=== PATIENT | female | born 2000 | race Hispanic/Latino ===

== ENCOUNTER 2021-12-01 02:18 | Emergency (ER) | payer MEDICAID ==
[2021-12-01 04:08] LABS: Hematocrit 39.9 % (30.3-42.9); Hemoglobin 13.2 gm/dl (10.1-14.3); Mean Corpuscular HGB Conc 33 % (30-34); Mean Corpuscular Volume 84 fl (79-97); Platelet Count 318 K/mm3 (140-440); Red Blood Count 4.75 M/mm3 (3.65-5.03); Red Cell Distribution Width 14.7 % (13.2-15.2)
[2021-12-01] MEDS ORDERED: MORPHINE 4 MG/1 ML INJ IV ONE (04:13)
[2021-12-01] MEDS ORDERED: ONDANSETRON 4 MG/2 ML INJ IV ONE (04:13)
[2021-12-01] MEDS ORDERED: SODIUM CHLORIDE 0.9% 1000 ML 1,000 ML IV ONE (04:13)
[2021-12-01 04:27] LABS: Alanine Aminotransferase 10 units/L (7-56); Blood Urea Nitrogen 8 mg/dL (7-17); Calcium 8.9 mg/dL (8.4-10.2); Hemolysis Index 38
--- NOTE | 2021-12-01 04:34 | Ultrasound Report ---
ULTRASOUND OBSTETRIC INDICATION / CLINICAL INFORMATION: Pelvic pain, vaginal bleeding, 19 weeks gestation. TECHNIQUE: Transabdominal. COMPARISON: None available. FINDINGS: There is a single intrauterine . Biparietal Diameter = 3.54 cm = 16.6 weeks.days Head Circumference = 14.82 cm = 18.0 weeks.days Abdominal Circumference = 12.43 cm = 18.0 weeks.days Femur Length = 2.80 cm = 18.4 weeks.days Average Ultrasound Age (AUA) = 17.6 weeks.days Heart Rate: 155 beats per minute. Estimated Weight in grams (if calculated): 230 Position: cephalic. Cervix: closed. Length in cm (if measured): 4.0 Placenta: posterofundal and low lying but free of os Amniotic Fluid Volume: Qualitatively normal Maternal Adnexa: No significant abnormality. IMPRESSION: 1. Single, living intrauterine with estimated sonographic age of 17.6 weeks.days 2. No significant sonographic abnormality. Signer Name: Paulo Chavez MD Signed: 12/01/2021 4:30 AM Workstation Name: [id number]
[2021-12-01 04:40] LABS: Bilirubin,Urine NEG (Negative); Blood,Urine NEG (Negative); Color,Urine Amber (Yellow); Mucus,Urine 3+ /HPF; Urobilinogen,Urine < 2.0 mg/dL (<2.0)
[2021-12-01 04:46] LABS: BUN/Creatinine Ratio 20
[2021-12-01 04:47] LABS: Basophils % (Manual) 0 % (0.0-1.8); Eosinophils % (Manual) 0 % (0.0-4.3); Total Cells Counted 100
[2021-12-01 04:49] LABS: Platelet Estimate Consistent w Auto; RBC Morphology Normal
--- NOTE | 2021-12-01 05:31 | Emergency Department Report ---
ED Female HPI - General Chief complaint: Vaginal Bleeding Stated complaint: 19 WKS ,CRAMPING,SEVERE DIARRHEA,VOMITING Source: patient Mode of arrival: Ambulatory Limitations: No Limitations - History of Present Illness Initial comments: Patient is a A3 21-year-old female who is approximately 17 weeks gestation presents to the ED with complaint of acute onset persistent diffuse low abdominal pain with vaginal bleeding for the last 3 days. Patient states that in the last 8 hours, the pelvic pain and vaginal bleeding have worsened such that she is unable to sleep as the pain radiates from the low abdomen to the low back. Patient denies nausea and vomiting, fever, chills, dysuria, urinary frequency and urgency, diarrhea, chest pain or shortness of breath, headache, dizziness, lightheadedness or syncope. MD Complaint: vaginal bleeding, pelvic pain, other (Low back pain) -: Sudden, days(s) (3) Location: suprapubic, other (Vaginal) Radiation: suprapubic, other (Low back) Severity: severe Severity scale (0 -10): 8 Quality: cramping, sharp Consistency: constant Improves with: none Worsens with: none Are you Now?: Yes (17 weeks gestation) Associated Symptoms: denies other symptoms, vaginal bleeding, abdominal pain (Suprapubic pain), hematuria. denies: vaginal discharge, nausea/vomiting, fever/chills, headaches, loss of appetite, dysuria, rash, seizure, shortness of breath, syncope, weakness - Related Data Sexually active: Yes : 5 Para: 1 A: 3 Previous Rx's Medication Instructions Recorded Last Taken Type Acetaminophen [Tylenol] 1,000 mg PO Q6HR #30 tablet 12/01/21 Unknown Rx Allergies Allergy/AdvReac Type Severity Reaction Status Date / Time No Known Allergies Allergy Unverified 12/01/21 03:31 ED Review of Systems ROS: Stated complaint: 19 WKS ,CRAMPING,SEVERE DIARRHEA,VOMITING Other details as noted in HPI Constitutional: denies: chills, fever Eyes: denies: eye pain, eye discharge, vision change ENT: denies: ear pain, throat pain Respiratory: denies: cough, shortness of breath, wheezing Cardiovascular: denies: chest pain, palpitations Endocrine: no symptoms reported Gastrointestinal: abdominal pain (Suprapubic pain). denies: nausea, diarrhea Genitourinary: abnormal menses (Heavy vaginal bleeding). denies: urgency, dysuria, frequency, hematuria, discharge Musculoskeletal: denies: back pain, joint swelling, arthralgia Skin: denies: rash, lesions Neurological: denies: headache, weakness, paresthesias Psychiatric: denies: anxiety, depression Hematological/Lymphatic: denies: easy bleeding, easy bruising ED Past Medical Hx - Medications Home Medications: Home Medications Medication Instructions Recorded Confirmed Last Taken Type Acetaminophen [Tylenol] 1,000 mg PO Q6HR #30 tablet 12/01/21 Unknown Rx ED Physical Exam - General Limitations: No Limitations General appearance: alert, in no apparent distress - Head Head exam: Present: atraumatic, normocephalic, normal inspection - Eye Eye exam: Present: normal appearance, PERRL, EOMI Pupils: Present: normal accommodation - ENT ENT exam: Present: normal exam, normal orophraynx, mucous membranes moist, TM's normal bilaterally, normal external ear exam - Neck Neck exam: Present: normal inspection, full ROM. Absent: tenderness - Respiratory Respiratory exam: Present: normal lung sounds bilaterally. Absent: respiratory distress, wheezes, rales, rhonchi, chest wall tenderness, accessory muscle use, prolonged expiratory - Cardiovascular Cardiovascular Exam: Present: normal rhythm, tachycardia, normal heart sounds. Absent: systolic murmur, diastolic murmur, rubs, gallop - GI/Abdominal GI/Abdominal exam: Present: soft, tenderness (Palpable suprapubic tenderness), normal bowel sounds. Absent: guarding, rebound, hyperactive bowel sounds, hypoactive bowel sounds, organomegaly, mass, bruit - Bi-manual exam: Present: other (Pelvic exam deferred at this time) - Extremities Exam Extremities exam: Present: normal inspection, full ROM, normal capillary refill - Back Exam Back exam: Present: normal inspection, full ROM. Absent: tenderness, CVA tenderness (R), CVA tenderness (L), muscle spasm, paraspinal tenderness, vertebral tenderness - Neurological Exam Neurological exam: Present: alert, oriented X3, CN II-XII intact, normal gait, reflexes normal - Psychiatric Psychiatric exam: Present: normal affect, normal mood - Skin Skin exam: Present: warm, dry, intact, normal color. Absent: rash ED Course Vital Signs 12/01/21 02:34 Temperature 98.3 F Pulse Rate 111 H Respiratory 16 Rate Blood Pressure 112/73 O2 Sat by Pulse 95 Oximetry ED Medical Decision Making - Lab Data Result diagrams: 12/01/21 03:53 12/01/21 03:53 - Radiology Data Radiology results: report reviewed, image reviewed [facility] [address] [place] [address] Ultrasound Report Signed Patient: LEONARD REES MR#: [id number] 9 : 2000 Acct:[id number] Age/Sex: 21 / F ADM Date: 12/01/21 Loc: ED Attending Dr: Ordering Physician: YESIAK MO Date of Service: 12/01/21 Procedure(s): US OB >= 14 weeks Fetus Accession Number(s): [id number] cc: YESIKA MO ULTRASOUND OBSTETRIC INDICATION / CLINICAL INFORMATION: Pelvic pain, vaginal bleeding, 19 weeks gestation. TECHNIQUE: Transabdominal. COMPARISON: None available. FINDINGS: There is a single intrauterine . Biparietal Diameter = 3.54 cm = 16.6 weeks.days Head Circumference = 14.82 cm = 18.0 weeks.days Abdominal Circumference = 12.43 cm = 18.0 weeks.days Femur Length = 2.80 cm = 18.4 weeks.days Average Ultrasound Age (AUA) = 17.6 weeks.days Heart Rate: 155 beats per minute. Estimated Weight in grams (if calculated): 230 Position: cephalic. Cervix: closed. Length in cm (if measured): 4.0 Placenta: posterofundal and low lying but free of os Amniotic Fluid Volume: Qualitatively normal Maternal Adnexa: No significant abnormality. IMPRESSION: 1. Single, living intrauterine with estimated sonographic age of 17.6 weeks.days 2. No significant sonographic abnormality. Signer Name: Paulo Chavez MD Signed: 12/01/2021 4:30 AM Workstation Name: [id number] Transcribed By: MILO Dictated By: Paulo Chavez MD Electronically Authenticated By: Paulo Chavez MD Signed Date/Time: 12/01/21429 DD/ 7 TD/TT: Print Cancel - Medical Decision Making This is a A3 21-year-old female who is approximately 17 weeks gestation presents to the ED with complaint of acute onset persistent diffuse low abdominal pain with vaginal bleeding for the last 3 days. Patient states that in the last 8 hours, the pelvic pain and vaginal bleeding have worsened such that she is unable to sleep as the pain radiates from the low abdomen to the low back. In the ED, patient is alert and oriented x3 and is not in any distress. Patient is however tachycardic but afebrile in triage. Patient crying during the physical exam. Patient was treated for pain in the ED. Lab test results were reviewed and are all nonactionable including urinalysis except acute leukocytosis of 15,700. Transvaginal ultrasound showed a single, living intrauterine with estimated sonographic age of 17.6 weeks.days with heart rate of 155 bpm. No other significant sonographic abnormality identified. On reevaluation, patient's pain is well controlled medication. Patient will discharge home on pain medications and advised to maintain a complete pelvic rest with no strenuous or physical activities and to follow-up with her [facility]ICAL [facility] physician in 3 to 5 days for reevaluation. Patient was advised to continue taking Tylenol as needed for pain with food. Patient was advised return to the ED immediately if symptoms get worse. - Differential Diagnosis Threatened miscarriage; subchorionic bleed; UTI; ovarian cyst; Critical care attestation.: If time is entered above; I have spent that time in minutes in the direct care of this critically ill patient, excluding procedure time. ED Disposition Clinical Impression: Abdominal pain during in second trimester, Threatened miscarriage, Vaginal bleeding in patient at less than 20 weeks gestation Disposition: 01 HOME / SELF CARE / HOMELESS Is pt being admited?: No Does the pt Need Aspirin: No Condition: Stable Instructions: Threatened Miscarriage, [id number], Vaginal Bleeding During , Second Trimester, [id number], Abdominal Pain During , [id number] Additional Instructions: All lab test results were reviewed and are all nonactionable. Transvaginal ultrasound showed a single, living intrauterine with estimated sonographic age of 17.6 weeks.days with heart rate of 155 bpm. No other significant sonographic abnormality identified. Therefore maintain a complete pelvic rest, take pain medication as needed with food, drink plenty of fluids and follow-up with your [facility] physician in 3 to 5 days for reevaluation. Return to the ED immediately if symptoms get worse. Prescriptions: Acetaminophen [Tylenol] 1,000 mg PO Q6HR #30 tablet Referrals: NITIN MCADAMS MD [Staff Physician] - 3-5 Days Time of Disposition: 05:34 Print Language: [id number]
[2021-12-01 05:58] VITALS: BP 111/77
== END 2021-12-01 11:08 | disposition home or self-care (01) ==
LOC: ED 02:18
DX: O20.9 Hemorrhage in early pregnancy, unspecified (principal); R10.9 Unspecified abdominal pain; Z3A.18 18 weeks gestation of pregnancy
CPT/HCPCS: 36415; 76805; 80053; 81001; 83690; 84702; 85007; 85025; 96361; 96374; 96375; 99284; J2270; J2405; J7030; Q0162